=== PATIENT | female | born 2000 | race African-American/Black ===

== ENCOUNTER 2024-12-15 16:09 | Emergency (ER) | payer OTHER ==
[~2024-12-15] VITALS: Ht 170.2 cm; Wt 70.1 kg
[2024-12-15 16:12] VITALS: BP 113/67; TEMP 97.8; O2SAT 97
[2024-12-15 16:36] LABS: URINE PREG TEST NEGATIVE (NEGATIVE)
== END 2024-12-15 18:52 | disposition left against medical advice (07) ==
LOC: M ED 16:09
DX: Z53.21 Procedure and treatment not carried out due to patient leaving prior to being seen by health care provider (principal)

== ENCOUNTER 2024-12-17 13:19 | Emergency (ER) | payer OTHER ==
[~2024-12-17] VITALS: Ht 170.2 cm; Wt 69.0 kg
[2024-12-17 13:21] VITALS: BP 120/70; TEMP 97.4; O2SAT 100
[2024-12-17] MEDS ORDERED: ACET500P3 PO (13:31)
== END 2024-12-17 18:46 | disposition home or self-care (01) ==
LOC: M ED 13:19
DX: M25.562 Pain in left knee (principal); Z79.1 Long term (current) use of non-steroidal anti-inflammatories (NSAID)